=== PATIENT | female | born 1935 | race Caucasian/White ===

== ENCOUNTER 2017-10-14 | Inpatient (IN) | payer MEDICARE | END 2017-10-14 21:03 | disposition E | DRG 64 | PROVIDERS: ADMIT Neurological Surgery | PROC: 5A1935Z Respiratory Ventilation, Less than 24 Consecutive Hours (ICD-10-PCS; principal; 2017-10-14) | PROC: 0BH17EZ Insertion of Endotracheal Airway into Trachea, Via Natural or Artificial Opening (ICD-10-PCS; 2017-10-14) | PROC: 02HV33Z Insertion of Infusion Device into Superior Vena Cava, Percutaneous Approach (ICD-10-PCS; 2017-10-14) | DX: I61.9 Nontraumatic intracerebral hemorrhage, unspecified (principal); G93.6 Cerebral edema; G81.91 Hemiplegia, unspecified affecting right dominant side; R47.01 Aphasia; I10 Essential (primary) hypertension; Z85.43 Personal history of malignant neoplasm of ovary; Z66 Do not resuscitate; Z51.5 Encounter for palliative care; I45.10 Unspecified right bundle-branch block; R13.10 Dysphagia, unspecified; R29.810 Facial weakness; R40.2323 Coma scale, best motor response, extension, at hospital admission; R40.2113 Coma scale, eyes open, never, at hospital admission; R40.2213 Coma scale, best verbal response, none, at hospital admission ==